=== PATIENT | male | born 1960 | race Caucasian/White ===

== ENCOUNTER 2021-04-15 10:58 | Outpatient (CLI) | payer BC ==
[2021-04-16 21:05] LABS: SARS-CoV-2 PCR by NAA Not Detected (NotDetected)
== END 2021-04-15 10:59 | disposition home or self-care (01) ==
LOC: CSHLAB 10:58
PROVIDERS: ATTEND Internal Medicine
DX: Z01.812 Encounter for preprocedural laboratory examination (principal); Z20.822 Contact with and (suspected) exposure to COVID-19
CPT/HCPCS: U0003; U0005